=== PATIENT | female | born 1995 | race Caucasian/White ===

== ENCOUNTER 2019-01-31 14:53 | Outpatient (CLI) | payer OTHER | END 2019-01-31 17:50 | disposition home or self-care (01) | LOC: OBT 14:53 → L-D 14:55 → OBT 17:50 | DX: O36.8130 Decreased fetal movements, third trimester, not applicable or unspecified (principal); O24.415 Gestational diabetes mellitus in pregnancy, controlled by oral hypoglycemic drugs; Z3A.37 37 weeks gestation of pregnancy | CPT/HCPCS: 76818; 82962 ==